=== PATIENT | female | born 1995 | race Hispanic/Latino ===

== ENCOUNTER 2018-09-07 22:05 | Emergency (ER) | payer MEDICAID ==
[~2018-09-07 22:05] MED LIST: CALC750T4 PO; CLIN150C9 PO; FERS325 PO; IBUP-2070 PO
[2018-09-07 22:33] LABS: APPEARANCE,URINE Clear (CLEAR); BILIRUBIN,URINE Negative (NEGATIVE); COLOR,URINE Yellow (YELLOW); GLUCOSE, URINE (UA) Negative (NEGATIVE); KETONES,URINE Trace mg/dL (NEGATIVE); LEUKOCYTE ESTERASE ,URINE Negative (NEGATIVE); NITRATE,URINE Negative (NEGATIVE); OCCULT BLOOD,URINE Small (NEGATIVE); PH,URINE 5.5 (5.0-8.0); PROTEIN,URINE Negative (NEGATIVE)
[2018-09-07 22:35] LABS: HCG,QUAL RESULT NEGATIVE (NEGATIVE)
[2018-09-07 22:43] LABS: AMPHET/METH SCREEN,URINE NEGATIVE (NEGATIVE); BACTERIA,URINE None Seen /HPF (None Seen); BARBITURATE SCREEN, URINE NEGATIVE (NEGATIVE); BENZODIAZEPINES SCREEN,URINE NEGATIVE (NEGATIVE); CANNABINOID SCREEN,URINE NEGATIVE (NEGATIVE); COCAINE SCREEN,URINE NEGATIVE (NEGATIVE); OPIATE SCREEN,URINE NEGATIVE (NEGATIVE); PHENCYCLIDINE SCREEN,URINE NEGATIVE (NEGATIVE); RBC,URINE 0-1 /HPF (0-1); SQUAMOUS EPITHELIAL CELL,UR Rare /HPF (0-2); WBC,URINE None Seen /HPF (0-1)
[2018-09-07] MEDS ORDERED: HYDROXYZINE HCL 25 MG TABLET ONE (22:46)
== END 2018-09-07 23:31 | disposition home or self-care (01) ==
LOC: EDH 22:05
DX: F41.1 Generalized anxiety disorder (principal); Z88.0 Allergy status to penicillin
CPT/HCPCS: 80305; 81001; 81025

== ENCOUNTER 2018-09-10 23:12 | Emergency (ER) | payer MEDICAID | END 2018-09-11 01:10 | disposition home or self-care (01) | LOC: EDH 23:12 | DX: F41.9 Anxiety disorder, unspecified (principal); Z88.0 Allergy status to penicillin ==

== ENCOUNTER 2020-10-19 05:35 | Day surgery (SDC) | payer BC ==
[2020-10-18 10:59] LABS: BASOPHILS % (AUTO) 0.1 % (0.0-5.0); EOSINOPHILS % (AUTO) 0.8 % (0.0-8.0); HEMATOCRIT 40.6 % (36-48); LYMPHOCYTES % (AUTO) 24.1 % (21.0-51.0); MEAN CORPUSCULAR HEMOGLOBIN 25.5 pg (27.0-33.0); MEAN CORPUSCULAR VOLUME 79.8 fL (79-99); MONOCYTES % (AUTO) 6.9 % (3.0-13.0); NEUTROPHILS % (AUTO) 67.8 % (40.0-77.0); PLATELET COUNT (AUTO) 272 K/uL (130-400); RED BLOOD CELL COUNT(AUTO) 5.09 MIL/uL (4.00-5.50); RED CELL DISTRIBUTION WIDTH 14.6 % (11.0-15.5); WHITE BLOOD COUNT (AUTO) 7.5 K/uL (4.8-10.8)
[2020-10-18 12:35] VITALS: BP 141/77
[2020-10-19] VITALS (17 sets, daily range): BP systolic 107–140; BP diastolic 55–84
[~2020-10-19] VITALS: Ht 157.5 cm; Wt 108.4 kg
[2020-10-19] MEDS ORDERED: LACTATED RINGERS 1000ML 1,000 ML IV ONE (05:59)
[2020-10-19] MEDS ORDERED: CLINDAMYCIN IVPB 600MG/50ML 0 ML IV ONE (05:59)
[2020-10-19] MEDS ORDERED: FENTANYL CITRATE PF 50 MCG/1 ML 2ML VIAL ONE (06:50)
[2020-10-19] MEDS ORDERED: PROPOFOL 10 MG/ML 20ML VIAL IV ONE (06:50)
[2020-10-19] MEDS ORDERED: SUCCINYLCHOLINE CHLORIDE 20 MG/ML 10 ML VIAL ONE (06:50)
[2020-10-19] MEDS ORDERED: LIDOCAINE PF 100MG/5ML (2%) SYRINGE 5ML ONE (06:50)
[2020-10-19] MEDS ORDERED: 0.9%NACL 10ML VIAL ONE (07:11)
[2020-10-19] MEDS ORDERED: PHENYLEPHRINE HCL 10 MG/ML 1ML VIAL IV ONE (07:12)
[2020-10-19] MEDS ORDERED: ONDANSETRON 4MG INJ ONE (07:40)
== END 2020-10-19 09:20 | disposition home or self-care (01) ==
LOC: DAH 05:35
PROVIDERS: ATTEND Obstetrics & Gynecology
DX: Z30.2 Encounter for sterilization (principal); Z30.432 Encounter for removal of intrauterine contraceptive device; Z20.822 Contact with and (suspected) exposure to COVID-19; Z88.0 Allergy status to penicillin; E66.01 Morbid (severe) obesity due to excess calories; Z83.3 Family history of diabetes mellitus; Z68.41 Body mass index [BMI] 40.0-44.9, adult; Z79.899 Other long term (current) drug therapy
CPT/HCPCS: 36415; 58301; 58670; 84703; 85025; 86850; 86900; 86901; 87635; A4215 ×2; A4221; A4222; A4223; A4351; A4452; A4606; A4663; A6260; C1769 ×3; C9803; J0330; J2001; J2370; J2405; J2704; J3010; J7120; J3490

== ENCOUNTER 2023-07-05 15:53 | Inpatient (IN) | payer BC, OTHER ==
[~2023-07-05] VITALS: Ht 154.9 cm; Wt 99.5 kg
[2023-07-05 16:17] LABS: APPEARANCE,URINE CLOUDY (CLEAR); BILIRUBIN,URINE 1 mg/dL (NEGATIVE); COLOR,URINE DARK-YELLOW (YELLOW); GLUCOSE, URINE (UA) NEGATIVE (NEGATIVE); KETONES,URINE NEGATIVE (NEGATIVE); LEUKOCYTE ESTERASE ,URINE 500 Leu/uL (NEGATIVE); NITRATE,URINE NEGATIVE (NEGATIVE); OCCULT BLOOD,URINE NEGATIVE (NEGATIVE); PROTEIN,URINE NEGATIVE (NEGATIVE)
[2023-07-05 16:24] LABS: ADD UA MICROSCOPIC YES
[2023-07-05 16:24] LABS: BASOPHILS # (AUTO) 0.05 K/uL (0.00-0.20); BASOPHILS % (AUTO) 0.6 % (0.0-5.0); EOSINOPHILS % (AUTO) 1.3 % (0.0-8.0); HEMATOCRIT 37.1 % (36-48); IMMATURE GRANULOCYTE ABSOLUTE 0.05 K/uL (0-1); LYMPHOCYTES # (AUTO) 1.8 K/uL (1.0-4.8); LYMPHOCYTES % (AUTO) 23.2 % (21.0-51.0); MEAN CORPUSCULAR HGB CONC 31.3 g/dL (32.0-36.0); MONOCYTES # (AUTO) 0.6 K/uL (0.1-1.0); MONOCYTES % (AUTO) 7.3 % (3.0-13.0); NEUTROPHILS # (AUTO) 5.3 K/uL (1.8-7.7); PLATELET COUNT (AUTO) 315 K/uL (130-400); RED BLOOD CELL COUNT(AUTO) 4.64 MIL/uL (4.00-5.50); RED CELL DISTRIBUTION WIDTH 15.4 % (11.0-15.5); WHITE BLOOD COUNT (AUTO) 7.9 K/uL (4.8-10.8)
[2023-07-05 16:34] LABS: CREATININE 0.9 mg/dL (0.5-1.5); POTASSIUM 3.6 mmol/L (3.5-5.1)
[2023-07-05 16:35] LABS: BACTERIA,URINE RARE /HPF (None Seen); MUCUS,URINE RARE LPF (None Seen); SQUAMOUS EPITHELIAL CELL,UR MOD /HPF (0-2)
[2023-07-05 16:38] LABS: ALBUMIN 3.3 g/dL (3.5-5.0); BILIRUBIN,TOTAL 3.2 mg/dL (0.2-1.0)
[2023-07-05] MEDS ORDERED: ZOSYN 3.375GM +NS 50ML IVPB ONE (23:30)
[2023-07-06] VITALS (10 sets, daily range): BP systolic 102–120; BP diastolic 41–73; PULSE 60–74; RESP 18–20; O2SAT 96–100
[2023-07-06] MEDS ORDERED: ONDANSETRON 4MG INJ IV PRN (00:30)
[2023-07-06] MEDS ORDERED: LEVOFLOXACIN 500 MG/D5W 100 ML 100 ML IV SCH (00:30)
[2023-07-06] MEDS: METRONIDAZOLE 500MG/100ML BAG IV SCH ×2 (01:16→22:41)
[2023-07-06] MEDS: LEVOFLOXACIN 500 MG/D5W 100 ML 100 ML IV SCH (01:16)
[2023-07-06] MEDS: 0.9%NACL 1000ML 1,000 ML IV SCH (01:16)
[2023-07-06] MEDS ORDERED: METRONIDAZOLE 500MG/100ML BAG 100 ML IVPB SCH (06:00)
[2023-07-06 07:20] LABS: BASOPHILS # (AUTO) 0.03 K/uL (0.00-0.20); BASOPHILS % (AUTO) 0.3 % (0.0-5.0); EOSINOPHILS # (AUTO) 0.09 K/uL (0.00-0.70); EOSINOPHILS % (AUTO) 0.9 % (0.0-8.0); HEMATOCRIT 34.3 % (36-48); IMMATURE GRANULOCYTE ABSOLUTE 0.05 K/uL (0-1); LYMPHOCYTES # (AUTO) 1.9 K/uL (1.0-4.8); LYMPHOCYTES % (AUTO) 20.1 % (21.0-51.0); MEAN CORPUSCULAR HEMOGLOBIN 25.3 pg (27.0-33.0); MEAN CORPUSCULAR HGB CONC 32.4 g/dL (32.0-36.0); MEAN CORPUSCULAR VOLUME 78.1 fL (79-99); MONOCYTES # (AUTO) 0.7 K/uL (0.1-1.0); MONOCYTES % (AUTO) 7.2 % (3.0-13.0); NEUTROPHILS # (AUTO) 6.9 K/uL (1.8-7.7); PLATELET COUNT (AUTO) 306 K/uL (130-400); RED BLOOD CELL COUNT(AUTO) 4.39 MIL/uL (4.00-5.50); RED CELL DISTRIBUTION WIDTH 15.5 % (11.0-15.5); WHITE BLOOD COUNT (AUTO) 9.7 K/uL (4.8-10.8)
[2023-07-06 07:29] LABS: HEMOGLOBIN A1C 5.9 % (4.0-6.0)
[2023-07-06 07:32] LABS: ALBUMIN 2.7 g/dL (3.5-5.0); BILIRUBIN,TOTAL 3.2 mg/dL (0.2-1.0); CREATININE 0.9 mg/dL (0.5-1.5); MAGNESIUM 1.8 mg/dL (1.80-2.40); TOTAL PROTEIN, SERUM 6.9 g/dL (6.0-8.3)
[2023-07-06] MEDS: FAMOTIDINE 20MG VIAL IV SCH (10:51)
[2023-07-06] MEDS: LORAZEPAM 2 MG/ML 1 ML VIAL IVP SCH (19:20)
[2023-07-07] VITALS (7 sets, daily range): BP systolic 108–151; BP diastolic 45–75; PULSE 57–69; RESP 17–24; O2SAT 98–99
[2023-07-07] MEDS: LORAZEPAM 2 MG/ML 1 ML VIAL IVP ONE (15:34)
[2023-07-08] VITALS (8 sets, daily range): BP systolic 106–158; BP diastolic 60–93; PULSE 58–79; RESP 16–20; O2SAT 97–98
[2023-07-08 09:19] LABS: BASOPHILS # (AUTO) 0.02 K/uL (0.00-0.20); BASOPHILS % (AUTO) 0.3 % (0.0-5.0); EOSINOPHILS # (AUTO) 0.08 K/uL (0.00-0.70); HEMATOCRIT 36.3 % (36-48); IMMATURE GRANULOCYTE ABSOLUTE 0.03 K/uL (0-1); LYMPHOCYTES # (AUTO) 1.7 K/uL (1.0-4.8); MEAN CORPUSCULAR HEMOGLOBIN 24.8 pg (27.0-33.0); MEAN CORPUSCULAR HGB CONC 30.6 g/dL (32.0-36.0); MONOCYTES # (AUTO) 0.5 K/uL (0.1-1.0); MONOCYTES % (AUTO) 6.2 % (3.0-13.0); NEUTROPHILS # (AUTO) 5.4 K/uL (1.8-7.7); NEUTROPHILS % (AUTO) 70.1 % (40.0-77.0); PLATELET COUNT (AUTO) 268 K/uL (130-400); RED BLOOD CELL COUNT(AUTO) 4.48 MIL/uL (4.00-5.50); RED CELL DISTRIBUTION WIDTH 15.5 % (11.0-15.5); WHITE BLOOD COUNT (AUTO) 7.7 K/uL (4.8-10.8)
[2023-07-08 09:48] LABS: CREATININE 0.9 mg/dL (0.5-1.5); POTASSIUM 3.2 mmol/L (3.5-5.1)
[2023-07-08 09:53] LABS: ALBUMIN 2.8 g/dL (3.5-5.0); BILIRUBIN,TOTAL 1.4 mg/dL (0.2-1.0); MAGNESIUM 1.6 mg/dL (1.80-2.40); TOTAL PROTEIN, SERUM 7.2 g/dL (6.0-8.3)
[2023-07-08] MEDS: POTASSIUM CHLORIDE 20MEQ/100ML 100 ML IV PRN (12:28)
[2023-07-08] MEDS: POTASSIUM CHLORIDE 10% ELIXIR 20 MEQ/15 ML UDCUP PO ONE (21:10)
[2023-07-09] VITALS: BP 134/74; PULSE 64; RESP 20
[2023-07-09] MEDS: MAGNESIUM 2GM PREMIX 50ML 50 ML IV PRN (01:25)
[2023-07-09 04:00] VITALS: BP 124/53; PULSE 52; RESP 20
[2023-07-09 07:51] VITALS: BP 107/59; PULSE 68; RESP 16
[2023-07-09 08:00] VITALS: O2SAT 99
[2023-07-09 10:29] LABS: ALBUMIN 3.2 g/dL (3.5-5.0); BILIRUBIN,TOTAL 1.2 mg/dL (0.2-1.0); CREATININE 0.8 mg/dL (0.5-1.5); POTASSIUM 3.8 mmol/L (3.5-5.1); TOTAL PROTEIN, SERUM 7.8 g/dL (6.0-8.3)
[2023-07-09 11:45] VITALS: BP 124/62; PULSE 64; RESP 16
== END 2023-07-09 15:00 | disposition home or self-care (01) | DRG 445 ==
LOC: EDH 15:53 → EDHIP 15:54 → WSH 07-06 00:59 → 3BH 07-06 18:20
PROVIDERS: ADMIT Hospitalist; ATTEND Hospitalist
DX: K80.63 Calculus of gallbladder and bile duct with acute cholecystitis with obstruction (principal); E44.1 Mild protein-calorie malnutrition; N39.0 Urinary tract infection, site not specified; Z68.41 Body mass index [BMI] 40.0-44.9, adult; K76.0 Fatty (change of) liver, not elsewhere classified; E66.01 Morbid (severe) obesity due to excess calories; Z82.49 Family history of ischemic heart disease and other diseases of the circulatory system; Z88.0 Allergy status to penicillin; Z98.51 Tubal ligation status
CPT/HCPCS: 36415; 74181; 76705; 80053; 80061; 81001; 83036; 83690; 83735; 85025; 87088; G0378; J1956; J2060; J3475; J3480; J3490; S8037

== ENCOUNTER 2023-12-27 10:16 | Emergency (ER) | payer SELFPAY ==
[~2023-12-27] VITALS: Ht 152.4 cm; Wt 97.5 kg
[2023-12-27 10:27] VITALS: BP 115/67; PULSE 64; RESP 16; O2SAT 99
[2023-12-27] MEDS: 0.9%NACL 1000ML 1,000 ML IV ONE (10:46)
[2023-12-27] MEDS: FAMOTIDINE 20MG VIAL IV ONE (10:46)
[2023-12-27] MEDS: MORPHINE 2 MG SYG IVP ONE ×2 (10:46→12:36)
[2023-12-27] MEDS: ONDANSETRON 4MG INJ IVP ONE (10:46)
[2023-12-27 10:54] LABS: BASOPHILS # (AUTO) 0.02 K/uL (0.00-0.20); BASOPHILS % (AUTO) 0.2 % (0.0-5.0); EOSINOPHILS # (AUTO) 0.02 K/uL (0.00-0.70); EOSINOPHILS % (AUTO) 0.2 % (0.0-8.0); HEMATOCRIT 36.2 % (36-48); IMMATURE GRANULOCYTE ABSOLUTE 0.05 K/uL (0-1); LYMPHOCYTES # (AUTO) 1.6 K/uL (1.0-4.8); LYMPHOCYTES % (AUTO) 15.7 % (21.0-51.0); MEAN CORPUSCULAR HEMOGLOBIN 23.8 pg (27.0-33.0); MEAN CORPUSCULAR HGB CONC 31.2 g/dL (32.0-36.0); MEAN CORPUSCULAR VOLUME 76.2 fL (79-99); MONOCYTES # (AUTO) 0.5 K/uL (0.1-1.0); MONOCYTES % (AUTO) 4.8 % (3.0-13.0); NEUTROPHILS # (AUTO) 7.8 K/uL (1.8-7.7); NEUTROPHILS % (AUTO) 78.6 % (40.0-77.0); PLATELET COUNT (AUTO) 380 K/uL (130-400); RED BLOOD CELL COUNT(AUTO) 4.75 MIL/uL (4.00-5.50); RED CELL DISTRIBUTION WIDTH 16.3 % (11.0-15.5)
[2023-12-27 11:03] LABS: APPEARANCE,URINE CLEAR (CLEAR); BILIRUBIN,URINE 2 mg/dL (NEGATIVE); COLOR,URINE DARK-YELLOW (YELLOW); GLUCOSE, URINE (UA) NEGATIVE (NEGATIVE); KETONES,URINE NEGATIVE (NEGATIVE); LEUKOCYTE ESTERASE ,URINE 75 Leu/uL (NEGATIVE); NITRATE,URINE NEGATIVE (NEGATIVE); OCCULT BLOOD,URINE NEGATIVE (NEGATIVE); PH,URINE 6.5 (5.0-8.0); PROTEIN,URINE 20 mg/dL (NEGATIVE); UROBILINOGEN,URINE 6 mg/dL (0.2-1.0)
[2023-12-27 11:04] LABS: CREATININE 1.1 mg/dL (0.5-1.0); POTASSIUM 3.2 mmol/L (3.5-5.1)
[2023-12-27 11:09] LABS: ALBUMIN 3.2 g/dL (3.5-5.0); BILIRUBIN,TOTAL 1.9 mg/dL (0.2-1.0); TOTAL PROTEIN, SERUM 7.6 g/dL (6.0-8.3)
[2023-12-27 11:34] LABS: ADD UA MICROSCOPIC YES
[2023-12-27 11:37] LABS: BACTERIA,URINE RARE /HPF (None Seen); MUCUS,URINE RARE LPF (None Seen); SQUAMOUS EPITHELIAL CELL,UR MOD /HPF (0-2)
[2023-12-27] MEDS: KETOROLAC 15MG/ML VIAL (15MG/ML) IV ONE (11:59)
[2023-12-27] MEDS: METOCLOPRAMIDE 10 MG/2 ML VIAL IVP ONE (12:02)
[2023-12-27] MEDS ORDERED: ONDA-243 PO (12:35)
[2023-12-27] MEDS ORDERED: FAMO-136 PO (12:35)
[2023-12-27] MEDS ORDERED: ACET-2079 PO (12:35)
[2023-12-27] MEDS ORDERED: KETO10TA2 PO (12:35)
== END 2023-12-27 12:51 | disposition home or self-care (01) ==
LOC: EDH 10:16
DX: K80.10 Calculus of gallbladder with chronic cholecystitis without obstruction (principal); Z79.899 Other long term (current) drug therapy; Z98.890 Other specified postprocedural states; Z88.0 Allergy status to penicillin
CPT/HCPCS: 99285; 96374; 96375; 76705; 80053; 84703; 83690; 85025; 87086; 81001; 36415; 96376; J3490; J2270 ×2; J7030; J2405; J2765; J1885